=== PATIENT | female | born 1945 | race Caucasian/White ===

== ENCOUNTER 2017-11-22 07:19 | Inpatient (IN) | payer OTHER ==
[2017-11-22] VITALS (13 sets, daily range): BP systolic 95–146
[~2017-11-22] VITALS: Ht 175.3 cm; Wt 78.9 kg
[~2017-11-22 07:19] MED LIST: cefOXitin SODIUM 2 GM in D5W 100 ML IV ONE
[2017-11-22 08:43] LABS: INR 1.1 (0.8-1.2); PROTHROMBIN TIME 11.4 SECS (9.5-12.5)
[2017-11-22] MEDS ORDERED: SPIR25TA4 PO (08:52)
[2017-11-22] MEDS ORDERED: GLU500 PO (08:52)
[2017-11-22] MEDS ORDERED: DIGO250T78 PO (08:52)
[2017-11-22] MEDS ORDERED: CLOP75TA2 PO (08:52)
[2017-11-22] MEDS ORDERED: FOLI-43 PO (08:52)
[2017-11-22] MEDS ORDERED: FERR140T PO (08:52)
[2017-11-22] MEDS ORDERED: METH2.5T PO (08:52)
[2017-11-22] MEDS ORDERED: ETAN50DI3 SQ (08:52)
[2017-11-22] MEDS ORDERED: APIX5TAB PO (08:52)
[2017-11-22] MEDS ORDERED: ALVIMOPAN 12 MG CAPSULE PO ONE ×3 (09:04→20:23)
[2017-11-22] MEDS ORDERED: fentaNYL CITRATE 250 MCG/5 ML AMP IV ONE (09:20)
[2017-11-22] MEDS ORDERED: SEVOFLURANE 15 MIN GAS INH ONE (09:20)
[2017-11-22] MEDS ORDERED: NS 1000 ML IV.SOLN IV ONE (09:20)
[2017-11-22] MEDS ORDERED: PROPOFOL 200MG/ 20ML VIAL (DIPRIVAN) IV ONE (09:20)
[2017-11-22] MEDS ORDERED: ONDANSETRON HCL 4 MG/2 ML VIAL IVP ONE (09:20)
[2017-11-22] MEDS ORDERED: NS IRRIG SOLN 1000 ML IR ONE (09:20)
[2017-11-22] MEDS ORDERED: ROCURONIUM BROMIDE 10 MG/ML (ZEMURON) IV ONE (09:20)
[2017-11-22] MEDS ORDERED: SUGAMMADEX SODIUM 200 MG/2 ML VIAL IV ONE (09:20)
[2017-11-22] MEDS ORDERED: BUPIVACAINE LIPOSOME/PF 266 MG/20 ML VIAL INFIL ONE (09:20)
[2017-11-22] MEDS ORDERED: NS 100 ML BAG IV ONE (09:20)
[2017-11-22] MEDS ORDERED: MIDAZOLAM HCL 5 MG/5 ML VIAL IVP ONE (09:20)
[2017-11-22] MEDS ORDERED: LR 1,000 ML IV SCH (10:31)
[2017-11-22] MEDS ORDERED: HYDROmorphone 1 MG INJ. 1 MG/ML AMPUL IVP PRN ×2 (10:45)
[2017-11-22] MEDS ORDERED: METOCLOPRAMIDE HCL 10 MG/2 ML VIAL IVP PRN (10:45)
[2017-11-22] MEDS ORDERED: HYDROmorphone 2 MG/ML VIAL IVP PRN (10:45)
[2017-11-22] MEDS ORDERED: ACETAMINOPHEN 325 MG TABLET PO PRN (11:00)
[2017-11-22] MEDS ORDERED: ONDANSETRON HCL 4 MG/2 ML VIAL IVP PRN (11:00)
[2017-11-22] MEDS: D5/0.45 NS 1,000 ML IV SCH (12:16)
[2017-11-22 12:26] LABS: ANION GAP 9 (5-15); CALCIUM 8.4 mg/dL (8.4-11.0); CHLORIDE 103 mmol/L (98-107); GLUCOSE 228 mg/dL (70-99); POTASSIUM 4.4 mmol/L (3.5-5.1); SODIUM SERUM 137 mmol/L (136-145); UREA NITROGEN, BLOOD 9 mg/dL (8-21)
[2017-11-22] MEDS ORDERED: LIDOCAINE JECT 2% PF 100 MG/5ML SYRINGE IVP ONE (12:30)
[2017-11-22 13:15] LABS: HEMATOCRIT 30.5 % (36-48); HEMOGLOBIN 9.5 g/dL (12.0-16.0)
[2017-11-22] MEDS ORDERED: HYDROcodone/ACETAMIN 5-325 MG TAB (NORCO/ VICODIN) PO PRN ×2 (14:00)
[2017-11-22] MEDS: HYDROmorphone 1 MG INJ. 1 MG/ML AMPUL IVP PRN ×3 (14:36→20:33)
[2017-11-22] MEDS ORDERED: DEXTROSE 50% JECT 50 ML DISP.SYRIN IVP PRN (20:00)
[2017-11-22] MEDS: cefOXitin SODIUM 2 GM in D5W 100 ML IV SCH (20:32)
[2017-11-22] MEDS: FAMOTIDINE PF 20 MG/2 ML VIAL IVP SCH (20:33)
[2017-11-22] MEDS: ALVIMOPAN 12 MG CAPSULE PO SCH (20:33)
[2017-11-22] MEDS: INSULIN REGULAR, HUMAN 100 UNITS/ML, 10 ML VIAL (novoLIN R) SUBCUT PRN (20:36)
[2017-11-23] VITALS (17 sets, daily range): BP systolic 97–136
[2017-11-23] MEDS: INSULIN REGULAR, HUMAN 100 UNITS/ML, 10 ML VIAL (novoLIN R) SUBCUT PRN ×4 (00:02→23:55)
[2017-11-23] MEDS: HYDROmorphone 1 MG INJ. 1 MG/ML AMPUL IVP PRN ×7 (00:07→22:52)
[2017-11-23 06:25] LABS: EOSINOPHILS # (AUTO) 0.1 K/uL (0.0-0.4); LYMPHOCYTES # (AUTO) 1.4 K/uL (1.0-5.5); RED CELL DISTRIBUTION WIDTH 19.9 % (9.0-15.0); WHITE BLOOD COUNT (AUTO) 9.6 K/uL (4.8-10.8)
[2017-11-23 06:42] LABS: BASOPHILS % (AUTO) 0.2 % (0.0-2.0); EOSINOPHILS % (AUTO) 1.3 % (0.0-4.0); HEMATOCRIT 30.2 % (36-48); HEMOGLOBIN 9.5 g/dL (12.0-16.0); LYMPHOCYTES % (AUTO) 15.1 % (20.5-51.5); MEAN CORPUSCULAR HEMOGLOBIN 24 pg (27-31); MEAN CORPUSCULAR HGB CONC 31 % (32-36); MEAN CORPUSCULAR VOLUME 77 fL (79.0-98.0); MONOCYTES # (AUTO) 0.8 K/uL (0.0-1.0); MONOCYTES % (AUTO) 8.3 % (1.7-9.3); NEUTROPHILS # (AUTO) 7.3 K/uL (1.8-7.7); NEUTROPHILS % (AUTO) 75.1 % (40.0-70.0); PLATELET COUNT (AUTO) 248 K/uL (130-430); RED BLOOD CELL COUNT(AUTO) 3.91 MIL/uL (4.2-6.2)
[2017-11-23 06:51] LABS: ALANINE AMINOTRANSFERASE 12 U/L (12-78); ALBUMIN 2.4 g/dL (3.4-4.8); ANION GAP 5 (5-15); ASPARTATE AMINOTRANSFERASE 12 U/L (10-37); CALCIUM 8.1 mg/dL (8.4-11.0); CHLORIDE 105 mmol/L (98-107); CREATININE 0.74 mg/dL (0.55-1.30); GLUCOSE 149 mg/dL (70-99); SODIUM SERUM 137 mmol/L (136-145); TOTAL BILIRUBIN 0.5 mg/dL (0.0-1.0); UREA NITROGEN, BLOOD 8 mg/dL (8-21)
[2017-11-23] MEDS: cefOXitin SODIUM 2 GM in D5W 100 ML IV SCH (08:58)
[2017-11-23] MEDS: FAMOTIDINE PF 20 MG/2 ML VIAL IVP SCH ×2 (08:58→20:31)
[2017-11-23] MEDS: ENOXAPARIN SODIUM 30 MG/0.3 ML SYRINGE SUBCUT SCH (09:02)
[2017-11-23] MEDS: D5/0.45 NS 1,000 ML IV SCH ×3 (09:08→17:07)
[2017-11-23] MEDS: ALVIMOPAN 12 MG CAPSULE PO SCH ×2 (10:15→20:32)
[2017-11-24] VITALS: BP_SYST 122
[2017-11-24] MEDS: HYDROmorphone 1 MG INJ. 1 MG/ML AMPUL IVP PRN ×5 (04:06→18:13)
[2017-11-24] MEDS: D5/0.45 NS 1,000 ML IV SCH (04:12)
[2017-11-24] MEDS: INSULIN REGULAR, HUMAN 100 UNITS/ML, 10 ML VIAL (novoLIN R) SUBCUT PRN ×4 (05:36→23:44)
[2017-11-24 06:36] LABS: BASOPHILS % (AUTO) 0.4 % (0.0-2.0); EOSINOPHILS # (AUTO) 0.1 K/uL (0.0-0.4); EOSINOPHILS % (AUTO) 0.9 % (0.0-4.0); HEMATOCRIT 30.2 % (36-48); HEMOGLOBIN 9.5 g/dL (12.0-16.0); LYMPHOCYTES % (AUTO) 14.7 % (20.5-51.5); MEAN CORPUSCULAR HEMOGLOBIN 24 pg (27-31); MEAN CORPUSCULAR HGB CONC 31 % (32-36); MEAN CORPUSCULAR VOLUME 78 fL (79.0-98.0); MONOCYTES # (AUTO) 0.6 K/uL (0.0-1.0); MONOCYTES % (AUTO) 8.5 % (1.7-9.3); NEUTROPHILS # (AUTO) 5.4 K/uL (1.8-7.7); NEUTROPHILS % (AUTO) 75.5 % (40.0-70.0); PLATELET COUNT (AUTO) 197 K/uL (130-430); RED BLOOD CELL COUNT(AUTO) 3.87 MIL/uL (4.2-6.2); RED CELL DISTRIBUTION WIDTH 19.9 % (9.0-15.0); WHITE BLOOD COUNT (AUTO) 7.1 K/uL (4.8-10.8)
[2017-11-24 07:07] LABS: ANION GAP 6 (5-15); CALCIUM 8.3 mg/dL (8.4-11.0); CHLORIDE 104 mmol/L (98-107); CREATININE 0.69 mg/dL (0.55-1.30); GLUCOSE 174 mg/dL (70-99); POTASSIUM 3.6 mmol/L (3.5-5.1); SODIUM SERUM 135 mmol/L (136-145); UREA NITROGEN, BLOOD 3 mg/dL (8-21)
[2017-11-24 07:50] VITALS: BP_SYST 162
[2017-11-24] MEDS ORDERED: DIGOXIN 0.5 MG/2 ML AMP IVP SCH (09:00)
[2017-11-24] MEDS: ENOXAPARIN SODIUM 30 MG/0.3 ML SYRINGE SUBCUT SCH (09:07)
[2017-11-24] MEDS: FAMOTIDINE PF 20 MG/2 ML VIAL IVP SCH ×2 (09:09→20:54)
[2017-11-24] MEDS: ALVIMOPAN 12 MG CAPSULE PO SCH ×2 (09:09→20:54)
[2017-11-24 11:29] VITALS: BP_SYST 122
[2017-11-24 15:29] VITALS: BP_SYST 119
[2017-11-24 20:00] VITALS: BP_SYST 120
[2017-11-25] VITALS: BP_SYST 136
[2017-11-25] MEDS: HYDROmorphone 1 MG INJ. 1 MG/ML AMPUL IVP PRN ×3 (00:01→13:08)
[2017-11-25 00:22] LABS: HEMATOCRIT 29.7 % (36-48); HEMOGLOBIN 9.3 g/dL (12.0-16.0)
[2017-11-25 06:43] LABS: BASOPHILS % (AUTO) 0.4 % (0.0-2.0); EOSINOPHILS # (AUTO) 0.1 K/uL (0.0-0.4); EOSINOPHILS % (AUTO) 1.6 % (0.0-4.0); HEMATOCRIT 29.4 % (36-48); HEMOGLOBIN 9.7 g/dL (12.0-16.0); LYMPHOCYTES # (AUTO) 1.3 K/uL (1.0-5.5); LYMPHOCYTES % (AUTO) 18.1 % (20.5-51.5); MEAN CORPUSCULAR HEMOGLOBIN 25 pg (27-31); MEAN CORPUSCULAR HGB CONC 33 % (32-36); MEAN CORPUSCULAR VOLUME 76 fL (79.0-98.0); MONOCYTES # (AUTO) 0.6 K/uL (0.0-1.0); MONOCYTES % (AUTO) 8.9 % (1.7-9.3); NEUTROPHILS # (AUTO) 5.2 K/uL (1.8-7.7); PLATELET COUNT (AUTO) 210 K/uL (130-430); RED BLOOD CELL COUNT(AUTO) 3.86 MIL/uL (4.2-6.2); RED CELL DISTRIBUTION WIDTH 19.5 % (9.0-15.0); WHITE BLOOD COUNT (AUTO) 7.2 K/uL (4.8-10.8)
[2017-11-25 07:10] LABS: ANION GAP 6 (5-15); CALCIUM 8.6 mg/dL (8.4-11.0); CHLORIDE 104 mmol/L (98-107); CREATININE 0.59 mg/dL (0.55-1.30); GLUCOSE 153 mg/dL (70-99); POTASSIUM 3.4 mmol/L (3.5-5.1); SODIUM SERUM 136 mmol/L (136-145); UREA NITROGEN, BLOOD 4 mg/dL (8-21)
[2017-11-25 08:00] VITALS: BP_SYST 109
[2017-11-25] MEDS: FAMOTIDINE PF 20 MG/2 ML VIAL IVP SCH (08:53)
[2017-11-25] MEDS: ENOXAPARIN SODIUM 30 MG/0.3 ML SYRINGE SUBCUT SCH (08:54)
[2017-11-25] MEDS: ALVIMOPAN 12 MG CAPSULE PO SCH (08:54)
[2017-11-25] MEDS ORDERED: DIGOXIN 0.125 MG TABLET PO SCH (09:00)
[2017-11-25] MEDS: INSULIN REGULAR, HUMAN 100 UNITS/ML, 10 ML VIAL (novoLIN R) SUBCUT PRN (11:38)
[2017-11-25 12:47] VITALS: BP_SYST 112
[2017-11-25 14:06] VITALS: BP_SYST 112
[2017-11-25 16:53] VITALS: BP_SYST 108
== END 2017-11-25 15:40 | DRG 330 ==
LOC: SMU 07:19 → SDS 07:19 → SIC 13:11 → STU 11-23 14:20
PROVIDERS: ADMIT Colon & Rectal Surgery; ATTEND Colon & Rectal Surgery
PROC: 30233N1 Transfusion of Nonautologous Red Blood Cells into Peripheral Vein, Percutaneous Approach (ICD-10-PCS; 2017-11-22)
PROC: 0DTF4ZZ Resection of Right Large Intestine, Percutaneous Endoscopic Approach (ICD-10-PCS; principal; 2017-11-22 09:30)
DX: C18.2 Malignant neoplasm of ascending colon (principal); E44.1 Mild protein-calorie malnutrition; E11.40 Type 2 diabetes mellitus with diabetic neuropathy, unspecified; G89.4 Chronic pain syndrome; I48.2 Chronic atrial fibrillation; M19.90 Unspecified osteoarthritis, unspecified site; Z96.653 Presence of artificial knee joint, bilateral; I12.9 Hypertensive chronic kidney disease with stage 1 through stage 4 chronic kidney disease, or unspecified chronic kidney disease; E11.22 Type 2 diabetes mellitus with diabetic chronic kidney disease; N18.2 Chronic kidney disease, stage 2 (mild); M51.36 Other intervertebral disc degeneration, lumbar region; R59.0 Localized enlarged lymph nodes; M54.30 Sciatica, unspecified side; I35.0 Nonrheumatic aortic (valve) stenosis; M06.9 Rheumatoid arthritis, unspecified; E66.9 Obesity, unspecified; I25.10 Atherosclerotic heart disease of native coronary artery without angina pectoris; Z95.5 Presence of coronary angioplasty implant and graft; Z95.2 Presence of prosthetic heart valve; Z85.42 Personal history of malignant neoplasm of other parts of uterus; Z86.73 Personal history of transient ischemic attack (TIA), and cerebral infarction without residual deficits; Z90.710 Acquired absence of both cervix and uterus; Z87.891 Personal history of nicotine dependence; Z88.2 Allergy status to sulfonamides; Z68.25 Body mass index [BMI] 25.0-25.9, adult
CPT/HCPCS: 36415; 71045; 80048; 80053; 82962; 85018-TC; 85025; 85610-TC; 85730-TC; 86886; 86900; 86901; 86920; 87081; 88307; 88309; 88341; 88342; 88361; 93005; 97110-GP; 97116-GP; 97530-GP; C1727; C9290; C9399; J0694; J1160; J1170; J1650; J1815; J2250; J2405; J2704; J3010; J3490; J7030; J7060; P9021